=== PATIENT | female | born 1990 ===

== ENCOUNTER 2017-08-22 15:46 | Emergency (ER) | END 2017-08-22 15:57 | disposition left against medical advice (07) | LOC: UCEAST 15:46 | DX: J02.9 Acute pharyngitis, unspecified (principal); R09.89 Other specified symptoms and signs involving the circulatory and respiratory systems; Z53.21 Procedure and treatment not carried out due to patient leaving prior to being seen by health care provider ==

== ENCOUNTER 2017-08-23 09:25 | Emergency (ER) | payer OTHER ==
--- NOTE | 2017-08-23 11:50 | UC ---
Throat Pain/Nasal Mak HPI - HPI Summary HPI Summary: 27 Y/O female being seen for C/O upper respiratory symptoms with cough, sinus pain and pressure, ear pressure and fever. States symptoms have been increasing with fever of 101 at home. Increasing sinus pain and pressure. Denies dyspnea, nausea or vomiting. Medical history and medications reviewed at this visit. No significant cardiac or respiratory history. - History of Current Complaint Chief Complaint: UCGeneralIllness Stated Complaint: SINUS CONGESTION Time Seen by Provider: 08/23/17 11:01 Hx Obtained From: Patient Hx Last Menstrual Period: 3 weeks ago Onset/Duration: Gradual Onset Severity: Mild Pain Intensity: 0 Pain Scale Used: 0-10 Numeric Cough: Nonproductive Associated Signs & Symptoms: Positive: Sinus Discomfort, Nasal Discharge, Fever - Epiglottits Risk Factors Epiglottis Risk Factors: Negative - Allergies/Home Medications Allergies/Adverse Reactions: Allergies Allergy/AdvReac Type Severity Reaction Status Date / Time amoxicillin Allergy Mild Rash Verified 08/23/17 10:09 Home Medications: Home Medications Citalopram TAB* [Celexa TAB*] 20 mg PO DAILY 08/23/17 [History Confirmed ] Ethinyl Estradiol/Drospirenone [Loryna 3 mg-0.02 mg Tablet] 1 tab PO DAILY 08/23 [History Confirmed 08/23/17] Loratadine [Claritin] 1 tab PO DAILY 08/23/17 [History Confirmed 08/23/17] Naproxen Sodium/Pseudoephedrin [Aleve Cold and Sinus Caplet] 1 tab PO DAILY 04/30 [History Confirmed 08/23/17] PMH/Surg Hx/FS Hx/Imm Hx Previously Healthy: Yes - Surgical History Surgical History: None - Social History Alcohol Use: Weekly Substance Use Type: None Smoking Status (MU): Never Smoked Tobacco - Immunization History Most Recent Tetanus Shot: UTD Review of Systems Constitutional: Fever, Chills Skin: Negative Eyes: Negative ENT: Nasal Discharge, Sinus Congestion, Sinus Pain/Tenderness Respiratory: Cough Cardiovascular: Negative Gastrointestinal: Negative Genitourinary: Negative Motor: Negative Neurovascular: Negative Musculoskeletal: Negative Neurological: Negative Psychological: Negative Is Patient Immunocompromised?: No All Other Systems Reviewed And Are Negative: Yes Physical Exam Triage Information Reviewed: Yes Appearance: Ill-Appearing Vital Signs: Initial Vital Signs Temp 99.6 F 08/23/17 10:04 Pulse 89 08/23/17 10:04 Resp 20 08/23/17 10:04 BP 134/88 08/23/17 10:04 Pulse Ox 99 08/23/17 10:04 Vital Signs Reviewed: Yes Eye Exam: Normal ENT: Positive: Nasal congestion, Nasal drainage, TM dull, Sinus tenderness Neck exam: Normal Neck: Positive: Nontender, No Lymphadenopathy Respiratory Exam: Normal Respiratory: Positive: Lungs clear, Normal breath sounds Cardiovascular Exam: Normal Cardiovascular: Positive: RRR Abdominal Exam: Normal Bowel Sounds: Positive: Present Musculoskeletal Exam: Normal Neurological Exam: Normal Psychological Exam: Normal Skin Exam: Normal Throat Pain/Nasal Course/Dx - Differential Dx/Diagnosis Differential Diagnosis/HQI/PQRI: Sinusitis, Tonsillitis, URI Provider Diagnoses: Sinusits Discharge - Discharge Plan Condition: Stable Disposition: HOME Patient Education Materials: Sinusitis (ED) Referrals: No Primary Care Phys,NOPCP [Primary Care Provider] - Additional Instructions: Take antibiotics as directed. Please be aware that your oral contraceptive may not be as effective with antibiotic use. If symptoms do not improve or worsen over the next several days please return to the urgent care or follow up with your primary care provider.
== END 2017-08-23 11:56 | disposition home or self-care (01) ==
LOC: UCEAST 09:25
DX: J32.9 Chronic sinusitis, unspecified (principal); Z88.1 Allergy status to other antibiotic agents
CPT/HCPCS: 99212; G0463

== ENCOUNTER 2019-09-09 17:57 | Emergency (ER) | payer OTHER ==
[2019-09-09 18:21] VITALS: BP 140/82
--- NOTE | 2019-09-09 18:52 | UC ---
Complaint Female HPI - HPI Summary HPI Summary: 29 yo with suspected yeast vaginitis, with increased discharge and external irritation since using OTC monistat this morning. She is aware of labial swelling. Arrives with a low grade fever, nausea, malaise and back pain. Flu testing is negative. Same partner x months, last sexually active about 10 days ago with a condom. Had no pain with intercourse, and no hx of STI's. Last routine testing was done about 9 months ago. Has had headache and malaise all day today. - History Of Current Complaint Chief Complaint: UCGU Stated Complaint: UTI Time Seen by Provider: 09/09/19 18:51 Hx Obtained From: Patient Hx Last Menstrual Period: Onset/Duration: Gradual Onset Timing: Constant Severity Initially: Moderate Severity Currently: Moderate Pain Intensity: 7 Character: Burning Aggravating Factor(s): Movement, Urination Alleviating Factor(s): Nothing Associated Signs And Symptoms: Positive: Fever, Back Pain, Nausea, Genital Swelling. Negative: Genital Blisters, Retained Foregin Body (Specify) - Risk Factors Ectopic Risk Factor: Negative - Allergies/Home Medications Allergies/Adverse Reactions: Allergies Allergy/AdvReac Type Severity Reaction Status Date / Time amoxicillin Allergy Mild Rash Verified 09/09/19 18:22 Home Medications: Home Medications Citalopram TAB* [Celexa TAB*] 20 mg PO DAILY 08/23/17 [History Confirmed ] Ethinyl Estradiol/Drospirenone [Loryna 3 mg-0.02 mg Tablet] 1 tab PO DAILY 08/23 [History Confirmed 09/09/19] Loratadine [Claritin] 1 tab PO DAILY 08/23/17 [History Confirmed 09/09/19] Fluconazole 100 MG TAB* [Diflucan 100 MG TAB*] 100 mg PO DAILY #3 tab 09/09/19 [ Rx] Sulfamethox/Trimethoprim DS* [Bactrim DS 800/160 TAB*] 1 tab PO BID #10 tab [Rx] PMH/Surg Hx/FS Hx/Imm Hx Previously Healthy: Yes Psychological History: Anxiety - Surgical History Surgical History: Yes Surgery Procedure, Year, and Place: oral - Social History Occupation: Employed Full-time Alcohol Use: Weekly Substance Use Type: Marijuana Smoking Status (MU): Never Smoked Tobacco - Immunization History Most Recent Tetanus Shot: UTD Review of Systems All Other Systems Reviewed And Are Negative: Yes Constitutional: Positive: Fever, Fatigue Skin: Positive: Negative Eyes: Positive: Negative ENT: Positive: Negative Respiratory: Positive: Negative Cardiovascular: Positive: Negative Gastrointestinal: Positive: Nausea Genitourinary: Positive: Dysuria Motor: Positive: Negative Neurovascular: Positive: Negative Musculoskeletal: Positive: Myalgia Neurological/Mental Status: Positive: Headache Psychological: Positive: Other - feeling blue this week. Is Patient Immunocompromised?: No Physical Exam Triage Information Reviewed: Yes Appearance: Ill-Appearing - looks mildly unwell, Other: - a little tearful at times. Vital Signs: Initial Vital Signs Temp 100.4 F 09/09/19 18:17 Pulse 75 09/09/19 18:17 Resp 16 09/09/19 18:17 BP 140/82 09/09/19 18:17 Pulse Ox 100 09/09/19 18:17 Eyes: Positive: Conjunctiva Clear ENT: Positive: Pharynx normal Neck: Positive: Supple, Nontender, No Lymphadenopathy Respiratory: Positive: Lungs clear, Normal breath sounds Cardiovascular: Positive: RRR, No Murmur Abdomen Description: Positive: Nontender, No Organomegaly, Soft Pelvic Exam: Positive: Other - perienum with diffuse swelling, maceration, with marked boggy swelling of the left outer labia. Cleansed perineum with warm normal saline and removed monistat cream with saline and moist gauze pads. Musculoskeletal Exam: Normal Neurological Exam: Normal Psychological Exam: Normal Skin Exam: Normal Diagnostics - Laboratory Lab Results: UA with 1+ wbc and rbc. Clincal exam consistent with yeast vulvitis. Low grade fever and malaise with negative flu test--discussed could be early flu , but will cover for UTI pending culture. Complaint Female Dx - Course Course Of Treatment: fluconazole, rest, fluids. Antibiotic for UTI/ cover for early pyelo. cultures sent including GC and Chlamydia. - Differential Dx/Diagnosis Differential Diagnosis/HQI/PQRI: Urinary Tract Infection, Other - yeast vaginitis Provider Diagnosis: Yeast vaginitis, UTI (urinary tract infection) Discharge ED - Sign-Out/Discharge Documenting (check all that apply): Patient Departure All imaging exams completed and their final reports reviewed: No Studies - Discharge Plan Condition: Stable Disposition: HOME Prescriptions: Fluconazole 100 MG TAB* [Diflucan 100 MG TAB*] 100 mg PO DAILY #3 tab Sulfamethox/Trimethoprim DS* [Bactrim DS 800/160 TAB*] 1 tab PO BID #10 tab Patient Education Materials: Vaginitis (ED) Referrals: No Primary Care Phys,NOPCP [Primary Care Provider] - Additional Instructions: Use fluconazole once daily for 3 days for treatment of yeast. There is a small chance that this could interact with your citaloprim. Stay well hydrated, and stop use if you have any sense of rapid heart rate. Use a cold pakc/forzen pad or face cloth on the perineum to decrease swelling. 1% hydrocortisone can be applied 2 or 3 times daily and will help to decrease swelling. Use bactrim for treatment of possible urine infection. You will receive a call if this can be discontinued. Chlamydia and testing for gonorrhea are also pending. - Billing Disposition and Condition Condition: STABLE Disposition: Home
[2019-09-09 19:20] LABS: Influenza A Molecular Negative (Negative); Influenza B Molecular Negative (Negative)
--- NOTE | 2019-09-12 07:13 | UC ---
- Progress Note Progress Note: Please call--urine culture is negative, but her BD Affirm did show [place]en. She was treated with diflucan, but also started on bactrim due to fever and back pain. She can stop the bactrim. Ensure that she is seein improvement in symptoms. Chlamydia and gonorrhea reports are still pending. Course/Dx - Diagnoses Provider Diagnoses: Yeast vaginitis, UTI (urinary tract infection) Discharge ED - Sign-Out/Discharge Documenting (check all that apply): Post-Discharge Follow Up All imaging exams completed and their final reports reviewed: No Studies - Discharge Plan Condition: Stable Disposition: HOME Prescriptions: Fluconazole 100 MG TAB* [Diflucan 100 MG TAB*] 100 mg PO DAILY #3 tab Sulfamethox/Trimethoprim DS* [Bactrim DS 800/160 TAB*] 1 tab PO BID #10 tab Patient Education Materials: Vaginitis (ED) Forms: *Work Release Referrals: No Primary Care Phys,NOPCP [Primary Care Provider] - Additional Instructions: Use fluconazole once daily for 3 days for treatment of yeast. There is a small chance that this could interact with your citaloprim. Stay well hydrated, and stop use if you have any sense of rapid heart rate. Use a cold pakc/forzen pad or face cloth on the perineum to decrease swelling. 1% hydrocortisone can be applied 2 or 3 times daily and will help to decrease swelling. Use bactrim for treatment of possible urine infection. You will receive a call if this can be discontinued. Chlamydia and testing for gonorrhea are also pending. - Billing Disposition and Condition Condition: STABLE Disposition: Home
[2019-09-13 13:42] LABS: Chlamydia trachomatis NAA Negative (Negative); Neisseria gonorrhoeae (GC) NAA Negative (Negative)
== END 2019-09-09 20:42 | disposition home or self-care (01) ==
LOC: UCEAST 17:57
DX: B37.3 Candidiasis of vulva and vagina (principal); N39.0 Urinary tract infection, site not specified; F41.9 Anxiety disorder, unspecified; M79.10 Myalgia, unspecified site; R51 Headache; Z88.0 Allergy status to penicillin; Z79.899 Other long term (current) drug therapy
CPT/HCPCS: 81003; 87086; 87480; 87491; 87510; 87591; 87660; 99212; G0463